=== PATIENT | female | born 1980 | race African-American/Black ===

== ENCOUNTER 2016-12-22 11:43 | Emergency (ER) | payer BC ==
[2016-12-22] MEDS ORDERED: IPRATROPIUM-ALBUTEROL 3 ML NEB INHALATION STA (12:19)
[2016-12-22] MEDS ORDERED: BENZONATATE 100 MG CAP PO STA (12:21)
--- NOTE | 2016-12-22 12:29 | ED ---
URI HPI - General Chief Complaint: Upper Respiratory Infection Stated Complaint: cough, SOB Time Seen by Provider: 12/22/16 12:08 Source: patient Mode of arrival: ambulatory Limitations: no limitations - History of Present Illness Initial Comments: 36-year-old female patient presents to emergency department today with complaints of cough and shortness of breath. Patient states she started with upper respiratory symptoms on , states this has progressed to cough, with chest tightness and shortness of breath over the last couple of days. Patient states that she has been coughing up clear to yellow sputum. She states that she has felt chilled however has not checked her temperature. She states she does have nasal congestion, facial pressure, and sore throat with this as well. She states that she has been taking DayQuil and cough drops but her cough has been persistent and she is unable to sleep related to this. She denies any sick contacts. Patient denies any recent chest pain, abdominal pain, nausea, vomiting, diarrhea, constipation, back pain, numbness, tingling, headache, visual changes, hematuria, dysuria, urinary frequency, urinary urgency , or any other complaints. Patient does admit to tobacco use however states she has been unable to smoke last couple of days due to her symptoms. She denies any chance of and states that she has had a tubal ligation. - Related Data Home Medications Medication Instructions Recorded Confirmed Ibuprofen [Motrin] 800 mg PO Q6HR PRN 08/21/15 08/21/15 Penicillin V Potassium [Pen Vee K] 250 mg PO Q8H 08/21/15 08/21/15 Previous Rx's Medication Instructions Recorded Albuterol Inhaler [Ventolin Hfa 1 - 2 puff INHALATION Q6HR #1 08/21/15 Inhaler] inhaler HYDROcodone/APAP 5-325MG [[place] 1 tab PO Q6HR PRN #20 tab 08/21/15 5-325] Ibuprofen [Motrin] 800 mg PO Q6HR PRN #60 tab 08/21/15 Levofloxacin [Levaquin] 750 mg PO DAILY #7 tab 08/21/15 Albuterol Sulfate [Proair Hfa] 1 - 2 puff INHALATION Q6HR PRN #1 12/22/16 inhaler Guaifenesin/Pseudoephedrne HCl 1 each PO BID #10 tab.er.12h 12/22/16 [Mucinex D ER 1,200-120 mg Tab] Allergies Allergy/AdvReac Type Severity Reaction Status Date / Time codeine Allergy Unknown Verified 12/22/16 11:58 Review of Systems ROS Statement: Those systems with pertinent positive or pertinent negative responses have been documented in the HPI. ROS Other: All systems not noted in ROS Statement are negative. Past Medical History Past Medical History: No Reported History History of Any Multi-Drug Resistant Organisms: None Reported Past Surgical History: Appendectomy, Tubal Ligation Past Psychological History: No Psychological Hx Reported Smoking Status: Current every day smoker Past Alcohol Use History: None Reported Past Drug Use History: None Reported General Exam Limitations: no limitations General appearance: alert, in no apparent distress, other (This is a well- developed, well-nourished adult female patient in no acute distress. Vital signs on presentation temperature 99.7F, pulse 100, respirations 18, blood pressure 144/100, pulse ox 97% on room air.) Eye exam: Present: normal appearance, PERRL, EOMI. Absent: scleral icterus, conjunctival injection, periorbital swelling ENT exam: Present: normal exam, normal oropharynx, mucous membranes moist, TM's normal bilaterally Neck exam: Present: normal inspection. Absent: tenderness, meningismus, lymphadenopathy Respiratory exam: Present: normal lung sounds bilaterally, wheezes (Scattered expiratory wheezes in posterior lung grijalva.), other (Respirations are even and unlabored. Persistent cough noted throughout exam.). Absent: respiratory distress, rales, rhonchi, stridor, chest wall tenderness Cardiovascular Exam: Present: regular rate, normal rhythm, normal heart sounds. Absent: systolic murmur, diastolic murmur, rubs, gallop, clicks GI/Abdominal exam: Present: soft, normal bowel sounds. Absent: distended, tenderness, guarding, rebound, rigid Neurological exam: Present: alert, oriented X3, CN II-XII intact Psychiatric exam: Present: normal affect, normal mood Skin exam: Present: warm, dry, intact, normal color. Absent: rash Course Vital Signs 12/22/16 12/22/16 12/22/16 11:55 12:37 12:44 Temperature 99.7 F H Pulse Rate 100 104 H 98 Respiratory 18 Rate Blood Pressure 144/100 O2 Sat by Pulse 97 Oximetry 12/22/16 13:42 Temperature 98.2 F Pulse Rate 78 Respiratory 20 Rate Blood Pressure 111/50 O2 Sat by Pulse 96 Oximetry Medical Decision Making - Medical Decision Making 36-year-old female patient presented for evaluation of upper respiratory symptoms and cough 3-4 days. Patient states that her cough is worsening over the last 2 days. Physical exam did reveal some scattered expiratory wheezes posteriorly. Otherwise exam is unremarkable. A chest x-ray showed no acute intrathoracic abnormalities. Influenza test was negative. She will be discharged home today with a prescription for pro-air inhaler as well as Mucinex D. She is instructed to increase her fluids and rest. She is instructed to follow-up with her primary care physician for recheck in 1-2 days. She was counseled regarding smoking cessation. She is instructed to return here immediately for any new, worsening, or concerning symptoms. She verbalizes understanding and agrees with this plan. - Lab Data Lab Results 12/22/16 Range/Units 12:35 Influenza Type A RNA Not Detected (Not Detectd) Influenza Type B (PCR) Not Detected (Not Detectd) - Radiology Data Radiology results: report reviewed, image reviewed Two-view x-ray of the chest shows lungs are clear. Pleural spaces are clear. Heart size is normal. Impression by Dr. Conroy shows no acute intrathoracic abnormality. Disposition Clinical Impression: Acute bronchitis, Viral upper respiratory illness Disposition: HOME SELF-CARE Condition: Good Instructions: Upper Respiratory Infection (ED), Acute Bronchitis (ED) Additional Instructions: Increase fluids. Take medications as directed. Take [id number] nasal decongestants. Follow-up through primary care physician for recheck in 1-2 days. Return here immediately for any new, worsening, or concerning symptoms. Prescriptions: Albuterol Sulfate [Proair Hfa] 1 - 2 puff INHALATION Q6HR PRN #1 inhaler PRN Reason: Wheezing Guaifenesin/Pseudoephedrne HCl [Mucinex D ER 1,200-120 mg Tab] 1 each PO BID # 10 tab.er.12h Referrals: Karl Scruggs MD [Primary Care Provider] - 1-2 days Time of Disposition: 13:30
--- NOTE | 2016-12-22 13:03 | XR ---
EXAMINATION TYPE: XR chest 2V DATE OF EXAM: 12/22/2016 HISTORY: Pain. REFERENCE: Previous study dated 08/21/2015. FINDINGS: The lungs are clear. Pleural space are clear. Heart size is normal. IMPRESSION: NO ACUTE INTRATHORACIC ABNORMALITY.
[2016-12-22 13:47] VITALS: BP 111/50; PULSE 78; RESP 20; TEMP 98.2
== END 2016-12-22 13:47 | disposition home or self-care (01) ==
LOC: EC 11:43
DX: J20.9 Acute bronchitis, unspecified (principal); J06.9 Acute upper respiratory infection, unspecified; F17.200 Nicotine dependence, unspecified, uncomplicated; Z88.5 Allergy status to narcotic agent
CPT/HCPCS: 71020; 87502; 94640; 99284